=== PATIENT | male | born 1950 | race Caucasian/White ===

== ENCOUNTER 2017-02-27 16:28 | Inpatient (IN) | payer MEDICARE, OTHER ==
[~2017-02-27] VITALS: Ht 172.7 cm; Wt 92.2 kg
[~2017-02-27 16:28] MED LIST: ACIPHEX20 MG PO; ACTOS45 MG PO; ALBUTEROL0.09 MG/A2 IH; ALLOPURINOL300 MG PO; ASMANEX220 MCG INH; ASPIRIN81 M1 PO; ASPRIN PO; CEFTIN500 MG PO; CIPROFLOXACIN500 MG PO; CLONIDINE0.3 MG PO; CORDROL20 MG PO; COZAAR100 MG PO; DELTASONE10 MG PO; DELTASONE50 MG PO; DIABETA5 MG PO; DOXYCYCLINE MO100 MG PO; DOXYCYCLINE100 M3; ESIDREX,ORETIC,25 MG PO; FLOMAX0.4 MG PO; FLOVENT DI250 MCG/Ac IH; FORADIL AERO0.012 MG IH; K-DUR 20MEQ20 MEQ PO; LISINOPRIL10 MG PO; MEDROL DOSEPAK4 MG PO; METFORMIN500 MG PO; METOPROLOL25 MG PO; PERCOCET 325 MG1 TA7 PO; PREDNICOT20 MG PO; PREDNISONE10 MG PO; PREDNISONE20 MG PO; PRILOSEC10 MG PO; PRILOSEC20 M1 PO; PROAIR HFA0.09 MG/AC IH; REMERON30 MG PO; SIMVASTATIN40 MG PO; SINGULAIR10 MG PO; SYMBICORT1 AE1 INH; TERAZOSIN5 MG PO; TORADOL10 MG PO; TRILIPIX45 M1 PO; VIBRAMYCIN100 MG PO; VICODIN 5/500 505 MG PO; ZITHROMAX Z PA250 MG PO; ZITHROMAX250 MG PO; ZITHROMAX500 MG PO; ZOFRAN ODT8 MG PO; [UNRECOGNIZED DRUG - REMARK]
[2017-02-27 16:34] VITALS: BP 210/119
[2017-02-27 17:20] VITALS: BP 183/115
[2017-02-27 17:34] LABS: BASO % 0.3 % (0.0-1.0); EOS % 0.1 % (1.0-4.0); HEMATOCRIT 47.3 % (42.0-52.0); HEMOGLOBIN 16.1 g/dl (14.0-18.0); LYMPH # 1.7 10*3/uL (1.3-4.4); LYMPH % 11.8 % (27.0-41.0); MEAN CELL VOLUME 82.5 fl (80.0-94.0); MEAN CORPUSCULAR HGB 28.1 pg (27.0-31.0); MEAN PLATELET VOLUME 9.7 fl (9.6-12.3); MONO # 0.8 10*3/uL (0.1-1.0); MONO % 5.3 % (3.0-9.0); NEUT # 11.9 10*3/uL (2.3-7.9); NEUT % 82.2 % (47.0-73.0); PLATELET COUNT AUTOMATED 301 10*3/uL (130-400); RED BLOOD COUNT 5.73 10*6/uL (4.50-5.90); RED CELL DISTRI WIDTH 12.4 % (0-14.5); WHITE BLOOD COUNT 14.5 10*3/uL (4.8-10.8)
[2017-02-27 17:43] LABS: ACT PARTIAL THROMBO TIME 21.8 SECONDS (20.8-31.5)
[2017-02-27 17:49] LABS: ALBUMIN 3.5 gm/dl (3.1-4.5); ALKALINE PHOSPHATASE 80 U/L (45-117); BUN 14 mg/dl (7-24); CHLORIDE 99 mmol/L (98-107); LIPASE 124 U/L (73-393); POTASSIUM 4.4 mmol/L (3.5-5.1); SGOT/AST 13 IU/L (3-35); SGPT/ALT 23 U/L (12-78); SODIUM 134 mmol/L (136-145); TOTAL PROTEIN 7.4 gm/dL (6.4-8.2)
[2017-02-27 17:57] LABS: TROPONIN I < 0.015 ng/ml (<0.045)
--- NOTE | 2017-02-27 18:10 | NUR ---
PT TO BATHROOM NO DISTRESS NOTED
--- NOTE | 2017-02-27 18:14 | NUR ---
PT BACK IN ROOM CALL LIGHT IN REACH MONITOR HOOKED BACK UP NO DISTRESS NOTED
[2017-02-27 18:19] VITALS: BP 184/124
[2017-02-27 19:15] VITALS: BP 180/100
[2017-02-27 19:30] VITALS: BP 170/112
[2017-02-27 20:00] VITALS: BP 174/110
--- NOTE | 2017-02-27 20:00 | NUR ---
A 66, admitted to 5E, under the services of KEVIN Rocha DO with a diagnosis of CHEST PAIN. Chief complaint is CHEST PAIN THAT STARTED THIS MORNING. Patient arrived via ambulatory from ER. Monitor applied. Initial assessment completed. Vital signs taken and recorded. KEVIN ROCHA DO notified of admission to the unit. Orders received. See assessment for past medical history, medications and allergies. Patient and/or family oriented to unit. Clothing/patient valuable form completed. HEYDI WHELAN
--- NOTE | 2017-02-27 20:41 | NUR ---
SPOKE WITH DR. GARCIA AT THIS TIME REGARDING PTS. BP - 174/110 WELL UPDATE OF PTS. STATUS. NO NEW ORDERS AT THIS TIME.
--- NOTE | 2017-02-27 22:17 | NUR ---
PER PT. HE HAS ALREADY RECEIVED THE FLU AND PNEUMOVAC AND WOULD NOT LIKE THEM DURING ADM. ORDERED MEDS MARKED NOT GIVEN ON EMAR.
[2017-02-27 23:37] LABS: BILIRUBIN NEGATIVE (NEGATIVE); BLOOD 3+ (NEGATIVE); CLARITY CLEAR (CLEAR); COLOR YELLOW (YELLOW); GLUCOSE NEGATIVE (NEGATIVE); KETONE NEGATIVE (NEGATIVE); LEUKO ESTERASE NEGATIVE (NEGATIVE); NITRITE NEGATIVE (NEGATIVE); UROBILINOGEN 0.2 E.U./dl (0.2-1.0)
[2017-02-27 23:44] LABS: BACTERIA 2+; EPITHELIAL CELLS 0-2; MUCOUS TRACE; RBC 16-20 rbc/hpf (0-2)
[2017-02-28] VITALS: BP 185/95
--- NOTE | 2017-02-28 00:36 | NUR ---
NOTIFIED DR. GARCIA OF PTS. ELEVATED BP - 185/95 WHILE HE WAS ON THE FLOOR AT THIS TIME. NO NEW ORDERS AT THIS TIME.
--- NOTE | 2017-02-28 04:01 | NUR ---
SPOKE WITH [facility] AT THIS TIME REGARDING PTS. UNVERIFIED MEDS. LAURA AT [facility] STATED SHE WILL HAVE THE PHARMACIST LOOK AT AND REVIEW THE ORDERS.
[2017-02-28 06:28] VITALS: BP 154/90
[2017-02-28 06:57] LABS: BASO # 0.1 10*3/uL (0.0-0.1); BASO % 0.5 % (0.0-1.0); EOS # 0.1 10*3/uL (0.0-0.4); EOS % 0.9 % (1.0-4.0); HEMATOCRIT 48.8 % (42.0-52.0); HEMOGLOBIN 16.2 g/dl (14.0-18.0); LYMPH # 1.9 10*3/uL (1.3-4.4); LYMPH % 17.9 % (27.0-41.0); MEAN CELL VOLUME 84.3 fl (80.0-94.0); MEAN CORPUSCULAR HGB CONC 33.2 g/dl (33.0-37.0); MEAN PLATELET VOLUME 9.7 fl (9.6-12.3); MONO # 1.2 10*3/uL (0.1-1.0); MONO % 11.1 % (3.0-9.0); NEUT # 7.4 10*3/uL (2.3-7.9); NEUT % 69.2 % (47.0-73.0); PLATELET COUNT AUTOMATED 275 10*3/uL (130-400); RED BLOOD COUNT 5.79 10*6/uL (4.50-5.90); RED CELL DISTRI WIDTH 12.4 % (0-14.5); WHITE BLOOD COUNT 10.7 10*3/uL (4.8-10.8)
[2017-02-28 07:15] LABS: ALBUMIN 3.1 gm/dl (3.1-4.5); ALKALINE PHOSPHATASE 75 U/L (45-117); BUN 14 mg/dl (7-24); CHLORIDE 101 mmol/L (98-107); CHOLESTEROL 185 mg/dL (<200); CREATININE 1.19 mg/dL (0.70-1.30); FREE T4 1.09 ng/dl (0.76-1.46); HDL CHOLESTEROL 42 mg/dl (40-60); LDL CHOLESTEROL 117 mg/dL (9-159); PHOSPHOROUS 2.6 mg/dL (2.5-4.9); POTASSIUM 4.1 mmol/L (3.5-5.1); SGOT/AST 13 IU/L (3-35); SGPT/ALT 20 U/L (12-78); SODIUM 136 mmol/L (136-145); TRIGLYCERIDES 128 mg/dl (<150); VLDL CHOLESTEROL 26 mg/dL (6-40)
[2017-02-28 07:19] LABS: ACT PARTIAL THROMBO TIME 21.8 SECONDS (20.8-31.5)
[2017-02-28 08:00] VITALS: BP 151/90
--- NOTE | 2017-02-28 08:00 | NUR ---
LAB RESULTS AND ORDERS REVIEWED. PT RESTING COMFORTABLY IN BE NO S AND S OF DISTRESS NOTED AT THIS TIME. PT DENIES PAIN OR SOB. CALL LIGHT IN REACH.
[2017-02-28 08:04] LABS: VITAMIN D, 25-HYDROXY 10.1 ng/mL (30-100)
--- NOTE | 2017-02-28 09:41 | NUR ---
Butter Maker in to talk to patient. Patient states lives at home with alone. There are few steps in the home. Physician: sanchez Pharmacy: [facility] health services: none Patient's level of ADLs: INDEPENDENT Patient has working utilities: all working DME: cane Follow-up physician's appointment after d/c: will be made by hospitalist nurse director upon discharge Does patient want to access PORTAL?: no Discharge plan discussed with patient, patient lives at home alone, he states he has a cane he uses occasionally, drives, patient states he will be returning home when able and denies any home needs. ELY PISANO
[2017-02-28 12:00] VITALS: BP 154/91
[2017-02-28] MEDS ORDERED: Zestril,Prinivi40 MG PO (13:21)
--- NOTE | 2017-02-28 15:45 | NUR ---
Discharge instructions reviewed with patient/family. Patient receptive and verbalizes understanding. Follow-up care arranged. Written instructions given to patient/family. CONCHA LO
--- NOTE | 2017-02-28 15:45 | NUR ---
PT REFUSED WHEELCHAIR OUT OF FACILITY. HE AMBULATED HIMSELF OFF FLOOR.
== END 2017-02-28 15:45 | disposition home or self-care (01) | DRG 872 ==
LOC: ED 16:28 → EDHOLD 18:48 → 5E 18:48
PROVIDERS: Internal Medicine; ADMIT Emergency Medicine
DX: A41.9 Sepsis, unspecified organism (principal); E87.1 Hypo-osmolality and hyponatremia; J44.9 Chronic obstructive pulmonary disease, unspecified; I16.1 Hypertensive emergency; N39.0 Urinary tract infection, site not specified; K21.9 Gastro-esophageal reflux disease without esophagitis; E78.5 Hyperlipidemia, unspecified; K44.9 Diaphragmatic hernia without obstruction or gangrene; K59.00 Constipation, unspecified; R73.9 Hyperglycemia, unspecified; R31.29 Other microscopic hematuria; N20.0 Calculus of kidney; E66.9 Obesity, unspecified; G50.0 Trigeminal neuralgia; I10 Essential (primary) hypertension; R07.9 Chest pain, unspecified; Z87.891 Personal history of nicotine dependence; Z82.49 Family history of ischemic heart disease and other diseases of the circulatory system; Z88.8 Allergy status to other drugs, medicaments and biological substances; Z79.82 Long term (current) use of aspirin; Z79.899 Other long term (current) drug therapy; Z68.30 Body mass index [BMI] 30.0-30.9, adult

== ENCOUNTER 2018-01-13 14:28 | Emergency (ER) | payer MEDICARE ==
[~2018-01-13] VITALS: Ht 172.7 cm; Wt 93.0 kg
[~2018-01-13 14:28] MED LIST changes: +HYDROCHLOROTH12.5 M2 PO; +LISINOPRIL40 MG PO; +NORVASC5 MG PO; +PROMETHAZINE12.5 M1 PO; +PROTONIX40 MG PO; +SYMB160 INH; +TENORMIN25 M1 PO; +VITAMIN D-32000 UNI1 PO; +Zestril,Prinivi40 MG PO
[2018-01-13 17:00] VITALS: BP 168/104
[2018-01-15] MEDS ORDERED: NORCO 5-325 TA1 EACH PO (10:07)
== END 2018-01-13 17:54 | disposition home or self-care (01) ==
LOC: ED 14:28
DX: S16.1XXA Strain of muscle, fascia and tendon at neck level, initial encounter (principal); R51 Headache; Z88.8 Allergy status to other drugs, medicaments and biological substances; Z79.899 Other long term (current) drug therapy; Z79.82 Long term (current) use of aspirin; Z87.442 Personal history of urinary calculi; Z87.891 Personal history of nicotine dependence; W10.8XXA Fall (on) (from) other stairs and steps, initial encounter; Y93.89 Activity, other specified; Y92.89 Other specified places as the place of occurrence of the external cause; Y99.8 Other external cause status

== ENCOUNTER → 2018-01-15 | Day surgery (SDC) | payer MEDICARE ==
[2018-01-13 14:21] LABS: BILIRUBIN NEGATIVE (NEGATIVE); CLARITY CLEAR (CLEAR); COLOR YELLOW (YELLOW); GLUCOSE NEGATIVE (NEGATIVE); KETONE NEGATIVE (NEGATIVE)
[2018-01-13 14:22] LABS: BLOOD 1+ (NEGATIVE); LEUKO ESTERASE NEGATIVE (NEGATIVE); NITRITE NEGATIVE (NEGATIVE); SPECIFIC GRAVITY 1.025 (1.005-1.030); UROBILINOGEN 0.2 E.U./dl (0.2-1.0)
[2018-01-13 14:39] LABS: BACTERIA TRACE; MUCOUS 1+
[2018-01-13 14:41] LABS: BUN 14 mg/dl (7-24); CHLORIDE 103 mmol/L (98-107); CREATININE 1.37 mg/dL (0.70-1.30); SODIUM 138 mmol/L (136-145)
[2018-01-13 14:50] LABS: ACT PARTIAL THROMBO TIME 21.5 SECONDS (20.8-31.5)
[2018-01-13 14:57] LABS: BASO # 0.1 10*3/uL (0.0-0.1); BASO % 1.4 % (0.0-1.0); EOS # 0.2 10*3/uL (0.0-0.4); EOS % 2.3 % (1.0-4.0); HEMATOCRIT 51.1 % (42.0-52.0); HEMOGLOBIN 16.4 g/dl (14.0-18.0); LYMPH # 2.3 10*3/uL (1.3-4.4); LYMPH % 25.7 % (27.0-41.0); MEAN CELL VOLUME 84.2 fl (80.0-94.0); MEAN CORPUSCULAR HGB CONC 32.1 g/dl (33.0-37.0); MEAN PLATELET VOLUME 9.5 fl (9.6-12.3); MONO % 11.6 % (3.0-9.0); NEUT # 5.2 10*3/uL (2.3-7.9); NEUT % 58.8 % (47.0-73.0); PLATELET COUNT AUTOMATED 340 10*3/uL (130-400); RED BLOOD COUNT 6.07 10*6/uL (4.50-5.90); RED CELL DISTRI WIDTH 12.9 % (0-14.5); WHITE BLOOD COUNT 8.9 10*3/uL (4.8-10.8)
[~2018-01-15] VITALS: Ht 172.7 cm; Wt 93.0 kg
[2018-01-15] VITALS (14 sets, daily range): BP systolic 113–175; BP diastolic 67–85
[~2018-01-15] MED LIST changes: +NORCO 5-325 TA1 EACH PO
--- NOTE | ~2018-01-15 | O ---
[place], [place] OPERATIVE NOTE NAME: SANTANA ERNST [facility] #: [id number] UNIT #: [id number] ROOM: DOCTOR: URIEL CHINO MD BIRTHDATE: [birth year] DOS: 01/15/2018 PREOPERATIVE DIAGNOSIS: Symptomatic gallstones. POSTOPERATIVE DIAGNOSIS: Symptomatic gallstones. PROCEDURE: Laparoscopic cholecystectomy. SURGEON: Uriel Chino MD PROCESS TECH: CODY. ANESTHESIA: General with endotracheal intubation. INDICATIONS: This is a 67-year-old gentleman admitted with a history of symptomatic gallstones and he is here for the above-mentioned procedure. The procedure and its complications were explained to the patient in detail preoperatively. Complications that were discussed included but were not limited to bleeding, infection, hematoma/seroma/abscess formation, biloma formation, prolonged postoperative pain, damage to lying vital structures, inadvertent injury to common bile duct, and incisional hernia formation. He agreed to proceed. DESCRIPTION OF PROCEDURE: After identifying the patient, the patient was brought to the operating suite and laid in the supine position. After induction of general anesthesia, timeout procedure was called and the parts were then painted and draped in the usual sterile fashion. An incision was made below the umbilicus. The skin and the subcutaneous tissue were incised. The fascia was incised vertically and 2 stay sutures with 0 Vicryl were taken on either side. The peritoneum was opened and 12 mm Karen port was introduced. Under direct vision, an epigastric incision of 10 mm and two 5 mm incisions were made in the right upper quadrant and appropriate size ports were introduced. The gallbladder was retracted superiorly and laterally. There were a lot of adhesions, which were taken down with the help of blunt dissection. The cystic duct and the cystic artery were carefully dissected until each of these structures were carefully identified and the triangle of Calot was identified as well as the critical view of safety was obtained. Thereafter, each of these structures were clipped 3 times and cut between the first and the second clip. The gallbladder was then removed from the bed of the gallbladder with the help of electrocautery. It was placed in an EndoCatch bag and removed from the peritoneal cavity and sent for histopathological diagnosis. Hemostasis was achieved in the liver bed and a sheet of Surgicel was placed for additional hemostasis. Saline that was used for irrigation was sucked away and hemostasis was confirmed again. Thereafter, the right upper quadrant and epigastric ports were removed under direct vision and there was no bleeding seen. The umbilical port was also removed and the 2 stay sutures were tied together and an additional 0 Vicryl stitch was taken in order to close the fascia. Thereafter, the edges of the skin were infiltrated with 1% plain lidocaine and approximated with the help of 4-0 Vicryl in a subcuticular running fashion. Dressings were placed. The patient tolerated the procedure well. There were no complications. [place], [place] OPERATIVE NOTE NAME: SANTANA ERNST UNIT #: [id number] ROOM: DOCTOR: URIEL CHINO MD BIRTHDATE: [birth year] Dr. Uriel Chino, the attending surgeon, was present throughout the operating case. The patient was extubated uneventfully and brought back to the recovery room in stable fashion. Uriel Chino MD CM:OPRECORD:OPERATIVE NOTE [id number] URIEL CHINO MD 01/15/18 1139 interface
--- NOTE | ~2018-01-15 | EKG ---
[place], [place] ELECTROCARDIOGRAM REPORT NAME: SANTANA ERNST UNIT #: [id number] ROOM: DOCTOR: ANDRA DRAFT REPORT BIRTHDATE: [birth year] [facility] Test Date: 2018-01-13 Test Time: 13:38:10 Pat Name: SANTANA ERNST Department: Room: Gender: Ex Chef: 0012 : 1950 Requested By: ERINN RICH Order Number: [id number] Reading MD: Measurements Intervals [place] Rate: 73 P: 37 W[place]: 159 QRS: -61 QRSD: 86 T: 32 QT: 435 QTc: 480 Interpretive Statements Sinus rhythm Left anterior fascicular block Abnormal R-wave progression, late transition Borderline prolonged QT interval Compared to ECG 12/25/2017 03:18:33 Myocardial infarct finding no longer present CM:EKGRPT:ELECTROCARDIOGRAM REPORT [id number] ERINN SILVERMAN DRAFT REPORT ERINN RICH MD
== END | disposition home or self-care (01) ==
LOC: SDC 01-09 11:00
PROVIDERS: Surgery
DX: K80.10 Calculus of gallbladder with chronic cholecystitis without obstruction (principal); K76.89 Other specified diseases of liver; I10 Essential (primary) hypertension; J44.9 Chronic obstructive pulmonary disease, unspecified; K21.9 Gastro-esophageal reflux disease without esophagitis; E11.9 Type 2 diabetes mellitus without complications; Z87.442 Personal history of urinary calculi; Z82.49 Family history of ischemic heart disease and other diseases of the circulatory system; Z82.3 Family history of stroke; Z79.899 Other long term (current) drug therapy; Z98.890 Other specified postprocedural states

== ENCOUNTER 2021-04-23 15:31 | Inpatient (IN) | payer OTHER ==
[~2021-04-23] VITALS: Ht 175.2 cm; Wt 88.9 kg
[2021-04-23 15:52] VITALS: BP 173/73
[2021-04-23 16:16] LABS: BASO # 0.1 10*3/uL (0.0-0.1); BASO % 0.7 % (0.0-1.0); EOS # 0.2 10*3/uL (0.0-0.4); EOS % 1.9 % (1.0-4.0); HEMATOCRIT 49.2 % (42.0-52.0); LYMPH # 3.3 10*3/uL (1.3-4.4); LYMPH % 28.8 % (27.0-41.0); MEAN CELL VOLUME 83.2 fl (80.0-94.0); MEAN CORPUSCULAR HGB 27.6 pg (27.0-31.0); MEAN CORPUSCULAR HGB CONC 33.1 g/dl (33.0-37.0); MEAN PLATELET VOLUME 9.7 fl (9.6-12.3); MONO # 1.1 10*3/uL (0.1-1.0); MONO % 9.5 % (3.0-9.0); NEUT # 6.7 10*3/uL (2.3-7.9); NEUT % 58.9 % (47.0-73.0); PLATELET COUNT AUTOMATED 269 10*3/uL (130-400); RED BLOOD COUNT 5.91 10*6/uL (4.50-5.90); RED CELL DISTRI WIDTH 12.7 % (0-14.5); WHITE BLOOD COUNT 11.3 10*3/uL (4.8-10.8)
[2021-04-23 16:29] LABS: ACT PARTIAL THROMBO TIME 26.2 SECONDS (20.0-32.1)
[2021-04-23 16:47] LABS: ALBUMIN 3.6 gm/dl (3.1-4.5); CREATININE 1.55 mg/dL (0.70-1.30); TOTAL PROTEIN 7.5 gm/dL (6.4-8.2)
[2021-04-23 17:00] VITALS: BP 162/88
[2021-04-23 18:38] VITALS: BP 168/145; BP 194/86
[2021-04-23] MEDS ORDERED: AMLODIPINE BESY10 MG PO (19:13)
[2021-04-23] MEDS ORDERED: LIPITOR40 MG PO (19:14)
[2021-04-23] MEDS ORDERED: APRESOLINE25 MG PO (19:16)
[2021-04-23] MEDS ORDERED: BRILINTA90 M1 PO (19:17)
[2021-04-23] MEDS ORDERED: TOPROL XL25 MG PO (19:17)
[2021-04-24] VITALS (8 sets, daily range): BP systolic 121–188; BP diastolic 72–87
[2021-04-24 06:54] LABS: BASO # 0.1 10*3/uL (0.0-0.1); EOS # 0.2 10*3/uL (0.0-0.4); EOS % 1.9 % (1.0-4.0); HEMATOCRIT 48.8 % (42.0-52.0); LYMPH # 2.2 10*3/uL (1.3-4.4); LYMPH % 24.8 % (27.0-41.0); MEAN CELL VOLUME 84.1 fl (80.0-94.0); MEAN CORPUSCULAR HGB 27.6 pg (27.0-31.0); MEAN CORPUSCULAR HGB CONC 32.8 g/dl (33.0-37.0); MONO # 0.9 10*3/uL (0.1-1.0); MONO % 9.8 % (3.0-9.0); NEUT # 5.6 10*3/uL (2.3-7.9); NEUT % 62.3 % (47.0-73.0); PLATELET COUNT AUTOMATED 240 10*3/uL (130-400); RED CELL DISTRI WIDTH 12.8 % (0-14.5)
[2021-04-24 07:20] LABS: BUN 13 mg/dl (7-24); CHLORIDE 107 mmol/L (98-107); POTASSIUM 3.8 mmol/L (3.5-5.1); SODIUM 137 mmol/L (136-145)
[2021-04-24 07:37] LABS: ALBUMIN 3.2 gm/dl (3.1-4.5); ALKALINE PHOSPHATASE 77 U/L (45-117); CHOLESTEROL 196 mg/dL (<200); CREATININE 1.38 mg/dL (0.70-1.30); FREE T4 1.02 ng/dl (0.76-1.46); LDL CHOLESTEROL 120 mg/dL (9-159); SGOT/AST 29 IU/L (3-35); SGPT/ALT 17 U/L (12-78); TOTAL PROTEIN 7.2 gm/dL (6.4-8.2); TRIGLYCERIDES 147 mg/dl (<150)
[2021-04-24 12:13] LABS: BASO # 0.1 10*3/uL (0.0-0.1); BASO % 0.5 % (0.0-1.0); EOS # 0.1 10*3/uL (0.0-0.4); EOS % 1.1 % (1.0-4.0); HEMATOCRIT 50.3 % (42.0-52.0); LYMPH # 1.8 10*3/uL (1.3-4.4); MEAN CORPUSCULAR HGB 27.6 pg (27.0-31.0); MEAN CORPUSCULAR HGB CONC 33.2 g/dl (33.0-37.0); MEAN PLATELET VOLUME 9.5 fl (9.6-12.3); MONO % 10.6 % (3.0-9.0); NEUT # 6.6 10*3/uL (2.3-7.9); NEUT % 68.5 % (47.0-73.0); PLATELET COUNT AUTOMATED 300 10*3/uL (130-400); RED BLOOD COUNT 6.06 10*6/uL (4.50-5.90); WHITE BLOOD COUNT 9.6 10*3/uL (4.8-10.8)
[2021-04-25 06:01] VITALS: BP 135/65
[2021-04-25 06:05] LABS: BASO # 0.1 10*3/uL (0.0-0.1); BASO % 0.6 % (0.0-1.0); EOS # 0.2 10*3/uL (0.0-0.4); EOS % 2.3 % (1.0-4.0); HEMATOCRIT 50.7 % (42.0-52.0); LYMPH # 2.3 10*3/uL (1.3-4.4); LYMPH % 21.9 % (27.0-41.0); MEAN CELL VOLUME 85.1 fl (80.0-94.0); MEAN CORPUSCULAR HGB 27.5 pg (27.0-31.0); MEAN CORPUSCULAR HGB CONC 32.3 g/dl (33.0-37.0); MEAN PLATELET VOLUME 9.8 fl (9.6-12.3); MONO % 9.7 % (3.0-9.0); NEUT # 6.9 10*3/uL (2.3-7.9); NEUT % 65.2 % (47.0-73.0); PLATELET COUNT AUTOMATED 244 10*3/uL (130-400); RED BLOOD COUNT 5.96 10*6/uL (4.50-5.90); RED CELL DISTRI WIDTH 13.1 % (0-14.5); WHITE BLOOD COUNT 10.6 10*3/uL (4.8-10.8)
[2021-04-25 06:11] LABS: CREATININE 1.47 mg/dL (0.70-1.30); POTASSIUM 4.1 mmol/L (3.5-5.1)
[2021-04-25 08:00] VITALS: BP 123/60
== END 2021-04-25 09:40 | disposition other institution (70) | DRG 280 ==
LOC: ED 15:31 → EDHOLD 17:49 → 5E 04-24 22:06 → EDHOLD 04-24 22:06
PROVIDERS: Emergency Medicine; Internal Medicine; Student in an Organized Health Care Education/Training Program; ADMIT Student in an Organized Health Care Education/Training Program; ATTEND Student in an Organized Health Care Education/Training Program
DX: I21.4 Non-ST elevation (NSTEMI) myocardial infarction (principal); N17.0 Acute kidney failure with tubular necrosis; K62.5 Hemorrhage of anus and rectum; E44.0 Moderate protein-calorie malnutrition; I50.30 Unspecified diastolic (congestive) heart failure; E83.41 Hypermagnesemia; J44.9 Chronic obstructive pulmonary disease, unspecified; N18.32 Chronic kidney disease, stage 3b; D72.828 Other elevated white blood cell count; E11.22 Type 2 diabetes mellitus with diabetic chronic kidney disease; E78.5 Hyperlipidemia, unspecified; E11.65 Type 2 diabetes mellitus with hyperglycemia; K21.9 Gastro-esophageal reflux disease without esophagitis; E66.9 Obesity, unspecified; I12.9 Hypertensive chronic kidney disease with stage 1 through stage 4 chronic kidney disease, or unspecified chronic kidney disease; K64.8 Other hemorrhoids; I25.10 Atherosclerotic heart disease of native coronary artery without angina pectoris; Z88.8 Allergy status to other drugs, medicaments and biological substances; Z82.49 Family history of ischemic heart disease and other diseases of the circulatory system; Z79.899 Other long term (current) drug therapy

== ENCOUNTER 2021-10-16 13:10 | Inpatient (IN) | payer OTHER ==
[~2021-10-16] VITALS: Ht 172.7 cm; Wt 86.4 kg
[~2021-10-16 13:10] MED LIST changes: +AMLODIPINE BESY10 MG PO; +APRESOLINE25 MG PO; +BRILINTA90 M1 PO; +LIPITOR40 MG PO; +TOPROL XL25 MG PO
[2021-10-16 13:25] VITALS: BP 107/63
[2021-10-16 13:48] LABS: BASO # 0.1 10*3/uL (0.0-0.1); BASO % 0.7 % (0.0-1.0); EOS # 0.3 10*3/uL (0.0-0.4); EOS % 3.5 % (1.0-4.0); HEMATOCRIT 46.4 % (42.0-52.0); LYMPH # 2.5 10*3/uL (1.3-4.4); MEAN CELL VOLUME 85.5 fl (80.0-94.0); MEAN CORPUSCULAR HGB 27.8 pg (27.0-31.0); MEAN CORPUSCULAR HGB CONC 32.5 g/dl (33.0-37.0); MEAN PLATELET VOLUME 9.5 fl (9.6-12.3); MONO # 0.8 10*3/uL (0.1-1.0); MONO % 7.8 % (3.0-9.0); NEUT # 6.1 10*3/uL (2.3-7.9); NEUT % 61.8 % (47.0-73.0); PLATELET COUNT AUTOMATED 250 10*3/uL (130-400); RED BLOOD COUNT 5.43 10*6/uL (4.50-5.90); RED CELL DISTRI WIDTH 12.9 % (0-14.5); WHITE BLOOD COUNT 9.8 10*3/uL (4.8-10.8)
[2021-10-16 13:59] LABS: ACT PARTIAL THROMBO TIME 24.5 SECONDS (20.0-32.1)
[2021-10-16 14:05] LABS: CREATININE 1.68 mg/dL (0.70-1.30); TOTAL PROTEIN 6.7 gm/dL (6.4-8.2)
[2021-10-16 15:09] VITALS: BP 101/64
[2021-10-16 16:40] VITALS: BP 120/72
[2021-10-16 18:48] VITALS: BP 132/72
[2021-10-16 19:32] VITALS: BP 125/88
[2021-10-16 21:10] VITALS: BP 165/72
[2021-10-17] VITALS: BP 146/79
[2021-10-17 01:37] LABS: BILIRUBIN Negative (Negative); BLOOD Negative (Negative); CLARITY Clear (Clear); COLOR Yellow (Yellow); GLUCOSE Negative (Negative); KETONE Trace (Negative); LEUKO ESTERASE Negative (Negative); NITRITE Negative (Negative)
[2021-10-17 07:02] LABS: BASO # 0.1 10*3/uL (0.0-0.1); BASO % 0.7 % (0.0-1.0); EOS # 0.3 10*3/uL (0.0-0.4); EOS % 2.6 % (1.0-4.0); HEMATOCRIT 42.9 % (42.0-52.0); LYMPH % 20.5 % (27.0-41.0); MEAN CORPUSCULAR HGB 27.9 pg (27.0-31.0); MEAN CORPUSCULAR HGB CONC 32.9 g/dl (33.0-37.0); MONO % 10.1 % (3.0-9.0); NEUT # 6.3 10*3/uL (2.3-7.9); NEUT % 65.8 % (47.0-73.0); PLATELET COUNT AUTOMATED 232 10*3/uL (130-400); RED BLOOD COUNT 5.05 10*6/uL (4.50-5.90); WHITE BLOOD COUNT 9.6 10*3/uL (4.8-10.8)
[2021-10-17 07:09] LABS: ALKALINE PHOSPHATASE 64 U/L (45-117); BUN 16 mg/dl (7-24); CHLORIDE 111 mmol/L (98-107); CHOLESTEROL 165 mg/dL (<200); CREATININE 1.25 mg/dL (0.70-1.30); LDL CHOLESTEROL 104 mg/dL (9-159); POTASSIUM 3.9 mmol/L (3.5-5.1); SGPT/ALT 13 U/L (12-78); SODIUM 143 mmol/L (136-145); TOTAL PROTEIN 6.2 gm/dL (6.4-8.2); TRIGLYCERIDES 118 mg/dl (<150)
[2021-10-17 07:14] LABS: FREE T4 1.06 ng/dl (0.76-1.46); SGOT/AST 11 IU/L (3-35)
[2021-10-17 08:00] VITALS: BP 183/89
[2021-10-17 09:30] LABS: VITAMIN D, 25-HYDROXY 43.5 ng/mL (30-100)
[2021-10-17] MEDS ORDERED: TOPROL XL25 MG PO (11:52)
== END 2021-10-17 16:23 | disposition home or self-care (01) | DRG 308 ==
LOC: ED 13:10 → EDHOLD 15:29 → 5E 18:34 → 4E 18:50
PROVIDERS: Emergency Medicine; Internal Medicine; ADMIT Internal Medicine; ATTEND Internal Medicine
DX: I49.8 Other specified cardiac arrhythmias (principal); N17.0 Acute kidney failure with tubular necrosis; E44.0 Moderate protein-calorie malnutrition; I50.30 Unspecified diastolic (congestive) heart failure; E87.2 Acidosis; I13.0 Hypertensive heart and chronic kidney disease with heart failure and stage 1 through stage 4 chronic kidney disease, or unspecified chronic kidney disease; J44.9 Chronic obstructive pulmonary disease, unspecified; N18.30 Chronic kidney disease, stage 3 unspecified; E78.5 Hyperlipidemia, unspecified; E11.22 Type 2 diabetes mellitus with diabetic chronic kidney disease; K21.9 Gastro-esophageal reflux disease without esophagitis; Z95.5 Presence of coronary angioplasty implant and graft; Z98.2 Presence of cerebrospinal fluid drainage device; Z79.899 Other long term (current) drug therapy; Z88.8 Allergy status to other drugs, medicaments and biological substances; Z82.49 Family history of ischemic heart disease and other diseases of the circulatory system; I25.2 Old myocardial infarction; Z87.442 Personal history of urinary calculi; Z68.28 Body mass index [BMI] 28.0-28.9, adult

== ENCOUNTER 2024-06-16 06:52 | Emergency (ER) | payer OTHER ==
[~2024-06-16] VITALS: Wt 94.8 kg
[2024-06-16 07:16] VITALS: BP 154/92
[2024-06-16] MEDS ORDERED: SODIUM CHLORIDE 0.9% 100 ML BAG IV ONE (07:30)
[2024-06-16] MEDS ORDERED: IOHEXOL 350 MG/ML 100 ML VIAL IV ONE (07:30)
[2024-06-16 07:57] LABS: BASO # 0.1 10*3/uL (0.0-0.1); BASO % 0.9 % (0.0-1.0); EOS # 0.3 10*3/uL (0.0-0.4); EOS % 4.2 % (1.0-4.0); MEAN CELL VOLUME 86.6 fl (80.0-94.0); MEAN CORPUSCULAR HGB 27.6 pg (27.0-31.0); MEAN CORPUSCULAR HGB CONC 31.9 g/dl (33.0-37.0); MEAN PLATELET VOLUME 9.1 fl (9.6-12.3); MONO # 0.9 10*3/uL (0.1-1.0); MONO % 10.5 % (3.0-9.0); NEUT # 4.7 10*3/uL (2.3-7.9); NEUT % 57.4 % (47.0-73.0); PLATELET COUNT AUTOMATED 230 10*3/uL (130-400); RED BLOOD COUNT 5.54 10*6/uL (4.50-5.90); RED CELL DISTRI WIDTH 12.6 % (0-14.5); WHITE BLOOD COUNT 8.1 10*3/uL (4.8-10.8)
[2024-06-16 08:18] LABS: ACT PARTIAL THROMBO TIME 28.1 SECONDS (20.0-32.1)
[2024-06-16 08:31] LABS: ALKALINE PHOSPHATASE 70 U/L (46-116); BUN 12 mg/dl (9-23); CHLORIDE 105 mmol/L (98-107); LIPASE 40 U/L (12-53); TOTAL PROTEIN 7.2 gm/dL (6.0-8.0)
[2024-06-16 08:35] LABS: SGPT/ALT < 7 U/L (5-49)
[2024-06-16] MEDS ORDERED: PERCOCET 5-3251 EACH PO (09:42)
[2024-06-16] MEDS ORDERED: FLOMAX0.4 MG PO (09:42)
[2024-06-16] MEDS ORDERED: OMNICEF300 MG PO (09:42)
[2024-06-16] MEDS ORDERED: Ondansetron4 MG PO (09:42)
[2024-06-16 10:02] LABS: BILIRUBIN Negative (Negative); BLOOD Trace-Intact (Negative); CLARITY Clear (Clear); COLOR Yellow (Yellow); GLUCOSE Negative (Negative); KETONE Negative (Negative); LEUKO ESTERASE Negative (Negative); NITRITE Negative (Negative); SPECIFIC GRAVITY >= 1.030 (1.001-1.030); UROBILINOGEN 0.2 E.U./dl (0.0-1.0)
== END 2024-06-16 10:19 | disposition home or self-care (01) ==
LOC: ED 06:52
PROVIDERS: Emergency Medicine
DX: I71.40 Abdominal aortic aneurysm, without rupture, unspecified (principal); N20.0 Calculus of kidney; I71.20 Thoracic aortic aneurysm, without rupture, unspecified; I10 Essential (primary) hypertension; J44.9 Chronic obstructive pulmonary disease, unspecified; K21.9 Gastro-esophageal reflux disease without esophagitis; I25.2 Old myocardial infarction; Z88.8 Allergy status to other drugs, medicaments and biological substances; Z98.890 Other specified postprocedural states; Z90.49 Acquired absence of other specified parts of digestive tract; Z95.5 Presence of coronary angioplasty implant and graft; Z87.891 Personal history of nicotine dependence

== ENCOUNTER 2024-10-23 16:52 | Emergency (ER) | payer OTHER ==
[~2024-10-23] VITALS: Ht 172.7 cm; Wt 84.4 kg
[~2024-10-23 16:52] MED LIST changes: +OMNICEF300 MG PO; +Ondansetron4 MG PO; +PERCOCET 5-3251 EACH PO
[2024-10-23 17:19] VITALS: BP 154/60
[2024-10-23] MEDS ORDERED: Albuterol Sulf/Ipratropium 3 ML VIAL NEB ONE (17:30)
[2024-10-23 17:42] LABS: BASO # 0.1 10*3/uL (0.0-0.1); BASO % 0.4 % (0.0-1.0); EOS # 1.0 10*3/uL (0.0-0.4); EOS % 8.5 % (1.0-4.0); MEAN CELL VOLUME 89.0 fl (80.0-94.0); MEAN CORPUSCULAR HGB 28.2 pg (27.0-31.0); MEAN PLATELET VOLUME 9.0 fl (9.6-12.3); MONO # 1.1 10*3/uL (0.1-1.0); MONO % 9.6 % (3.0-9.0); NEUT # 7.1 10*3/uL (2.3-7.9); NEUT % 62.3 % (47.0-73.0); NUCLEATED RED BLOOD CELL 0.0 % (0.0-0.0); NUCLEATED RED BLOOD CELL 0.0 10*3/uL (0.0-0.0); PLATELET COUNT AUTOMATED 208 10*3/uL (130-400); RED CELL DISTRI WIDTH 13.8 % (0-14.5)
[2024-10-23 17:58] LABS: BUN 22.0 mg/dl (9-23)
[2024-10-23] MEDS ORDERED: PREDNISONE20 M1 PO (19:06)
[2024-10-23] MEDS ORDERED: AVPAK AZITHROM250 MG PO (19:06)
== END 2024-10-23 19:17 | disposition home or self-care (01) ==
LOC: ED 16:52
PROVIDERS: Internal Medicine
DX: J44.89 Other specified chronic obstructive pulmonary disease (principal); Z87.891 Personal history of nicotine dependence; Z90.49 Acquired absence of other specified parts of digestive tract; Z88.8 Allergy status to other drugs, medicaments and biological substances; Z79.82 Long term (current) use of aspirin

== ENCOUNTER 2024-11-24 03:54 | Emergency (ER) | payer OTHER ==
[~2024-11-24] VITALS: Ht 172.7 cm; Wt 84.4 kg
[~2024-11-24 03:54] MED LIST changes: +AVPAK AZITHROM250 MG PO; +PREDNISONE20 M1 PO
[2024-11-24 04:04] VITALS: BP 144/76
[2024-11-24] MEDS ORDERED: Albuterol Sulf/Ipratropium 3 ML VIAL NEB ONE (04:10)
[2024-11-24] MEDS ORDERED: ZITHROMAX250 MG PO (05:01)
[2024-11-24] MEDS ORDERED: PREDNISONE20 M1 PO (05:01)
== END 2024-11-24 05:17 | disposition home or self-care (01) ==
LOC: ED 03:54
DX: J40 Bronchitis, not specified as acute or chronic (principal); I10 Essential (primary) hypertension; J44.9 Chronic obstructive pulmonary disease, unspecified; K21.9 Gastro-esophageal reflux disease without esophagitis; I25.2 Old myocardial infarction; Z87.891 Personal history of nicotine dependence; Z98.890 Other specified postprocedural states; Z88.8 Allergy status to other drugs, medicaments and biological substances

== ENCOUNTER 2024-12-09 04:42 | Emergency (ER) | payer OTHER ==
[~2024-12-09] VITALS: Ht 172.7 cm; Wt 84.4 kg
[2024-12-09 04:54] VITALS: BP 168/100
[2024-12-09] MEDS ORDERED: Albuterol Sulf/Ipratropium 3 ML VIAL NEB ONE (04:55)
== END 2024-12-09 06:34 | disposition home or self-care (01) ==
LOC: ED 04:42
DX: J44.1 Chronic obstructive pulmonary disease with (acute) exacerbation (principal); Z88.8 Allergy status to other drugs, medicaments and biological substances; Z79.899 Other long term (current) drug therapy; Z79.82 Long term (current) use of aspirin; Z87.442 Personal history of urinary calculi; Z90.49 Acquired absence of other specified parts of digestive tract; Z98.890 Other specified postprocedural states; Z87.891 Personal history of nicotine dependence

== ENCOUNTER 2024-12-24 22:51 | Emergency (ER) | payer OTHER ==
[~2024-12-24] VITALS: Ht 162.5 cm; Wt 84.4 kg
[2024-12-24] MEDS ORDERED: Albuterol Sulf/Ipratropium 3 ML VIAL NEB ONE (23:45)
[2024-12-25 00:05] LABS: BASO # 0.1 10*3/uL (0.0-0.1); BASO % 0.7 % (0.0-1.0); EOS # 1.0 10*3/uL (0.0-0.4); EOS % 8.9 % (1.0-4.0); MEAN CELL VOLUME 90.0 fl (80.0-94.0); MEAN CORPUSCULAR HGB 28.8 pg (27.0-31.0); MEAN PLATELET VOLUME 8.9 fl (9.6-12.3); MONO # 1.3 10*3/uL (0.1-1.0); MONO % 11.8 % (3.0-9.0); NEUT # 6.6 10*3/uL (2.3-7.9); NEUT % 60.3 % (47.0-73.0); NUCLEATED RED BLOOD CELL 0.0 % (0.0-0.0); NUCLEATED RED BLOOD CELL 0.0 10*3/uL (0.0-0.0); PLATELET COUNT AUTOMATED 218 10*3/uL (130-400); RED CELL DISTRI WIDTH 13.0 % (0-14.5)
[2024-12-25 00:22] LABS: BUN 19.0 mg/dl (9-23); SGPT/ALT 9.0 U/L (5-49)
[2024-12-25] MEDS ORDERED: PREDNISONE10 M1 PO (02:54)
[2024-12-25] MEDS ORDERED: VIBRAMYCIN100 MG PO (02:54)
[2024-12-25 02:57] VITALS: BP 163/92
== END 2024-12-25 03:05 | disposition home or self-care (01) ==
LOC: ED 22:51
PROVIDERS: Emergency Medicine
DX: J44.1 Chronic obstructive pulmonary disease with (acute) exacerbation (principal); K21.9 Gastro-esophageal reflux disease without esophagitis; E78.5 Hyperlipidemia, unspecified; I12.9 Hypertensive chronic kidney disease with stage 1 through stage 4 chronic kidney disease, or unspecified chronic kidney disease; E11.22 Type 2 diabetes mellitus with diabetic chronic kidney disease; N18.30 Chronic kidney disease, stage 3 unspecified; I25.2 Old myocardial infarction; Z87.891 Personal history of nicotine dependence; Z98.890 Other specified postprocedural states; Z87.442 Personal history of urinary calculi

== ENCOUNTER 2025-01-17 23:26 | Emergency (ER) | payer OTHER ==
[~2025-01-17] VITALS: Ht 172.7 cm; Wt 84.4 kg
[~2025-01-17 23:26] MED LIST changes: +PREDNISONE10 M1 PO
[2025-01-17 23:36] VITALS: BP 162/94
[2025-01-17 23:49] LABS: BASO # 0.1 10*3/uL (0.0-0.1); BASO % 0.6 % (0.0-1.0); EOS # 0.4 10*3/uL (0.0-0.4); EOS % 3.1 % (1.0-4.0); MEAN CELL VOLUME 91.2 fl (80.0-94.0); MEAN CORPUSCULAR HGB 29.1 pg (27.0-31.0); MEAN PLATELET VOLUME 9.1 fl (9.6-12.3); MONO # 1.2 10*3/uL (0.1-1.0); MONO % 9.8 % (3.0-9.0); NEUT # 8.1 10*3/uL (2.3-7.9); NEUT % 66.4 % (47.0-73.0); NUCLEATED RED BLOOD CELL 0.0 % (0.0-0.0); NUCLEATED RED BLOOD CELL 0.0 10*3/uL (0.0-0.0); PLATELET COUNT AUTOMATED 228 10*3/uL (130-400); RED CELL DISTRI WIDTH 13.3 % (0-14.5)
[2025-01-18 00:06] LABS: BUN 26.0 mg/dl (9-23)
[2025-01-18] MEDS ORDERED: Albuterol Sulf/Ipratropium 3 ML VIAL NEB ONE (02:20)
== END 2025-01-18 02:49 | disposition home or self-care (01) ==
LOC: ED 23:26
PROVIDERS: Internal Medicine
DX: R05.3 Chronic cough (principal); N17.9 Acute kidney failure, unspecified; N18.9 Chronic kidney disease, unspecified; D72.829 Elevated white blood cell count, unspecified; Z88.8 Allergy status to other drugs, medicaments and biological substances; Z79.899 Other long term (current) drug therapy; Z79.82 Long term (current) use of aspirin; Z87.442 Personal history of urinary calculi; Z98.890 Other specified postprocedural states; Z87.891 Personal history of nicotine dependence

== ENCOUNTER 2025-01-18 18:38 | Emergency (ER) | payer OTHER ==
[~2025-01-18] VITALS: Ht 172.7 cm; Wt 84.4 kg
[2025-01-18 18:43] VITALS: BP 140/77
[2025-01-18] MEDS ORDERED: predniSONE 20 MG TAB PO ONE (19:30)
== END 2025-01-18 19:46 | disposition home or self-care (01) ==
LOC: ED 18:38
DX: R05.3 Chronic cough (principal); Z88.8 Allergy status to other drugs, medicaments and biological substances; Z79.899 Other long term (current) drug therapy; Z79.82 Long term (current) use of aspirin; Z87.442 Personal history of urinary calculi; Z98.890 Other specified postprocedural states; Z87.891 Personal history of nicotine dependence